=== PATIENT | female | born 1965 | race Caucasian/White ===

== ENCOUNTER 2016-12-12 18:14 | Emergency (ER) | payer MEDICAID ==
[~2016-12-12] VITALS: Wt 72.0 kg
--- NOTE | 2016-12-12 20:49 | ERD ---
ER Documentation Chief Complaint Date/Time DATE: 12/12/16 TIME: 20:47 Chief Complaint TAMPON STUCK HPI Patient is a 51-year-old female with no medical problems who presents saying that she has a tampon stuck in her vagina. She said that is been there for 3 days. She denies any vaginal bleeding currently. She said that she feels like she can touch her but she could not grab it to pull it out. She denies any fevers. She has no other complaints. She does not currently have a primary doctor. ROS All systems reviewed and are negative except as per history of present illness. Allergies Allergies: Coded Allergies: No Known Allergy (Unverified , 12/12/16) PMhx/Soc Medical and Surgical Hx: pt denies Medical Hx History of Surgery: No Anesthesia Reaction: No Hx Neurological Disorder: No Hx Respiratory Disorders: No Hx Cardiac Disorders: No Hx Psychiatric Problems: No Hx Miscellaneous Medical Probl: No Hx Alcohol Use: No Hx Substance Use: No Hx Tobacco Use: No Smoking Status: Never smoker FmHx Family History: No diabetes Physical Exam Vitals Vital Signs Date Time Temp Pulse Resp B/P Pulse Ox O2 Delivery O2 Flow Rate FiO2 12/12/16 18:21 98.1 90 18 144/77 99 Physical Exam Const: No acute distress Head: Atraumatic Eyes: Normal Conjunctiva ENT: Normal External Ears, Nose and Mouth. Neck: Full range of motion..~ No meningismus. Resp: Clear to auscultation bilaterally Cardio: Regular rate and rhythm, no murmurs Abd: Soft, non tender, non distended. Normal bowel sounds Skin: No petechiae or rashes Back: No midline or flank tenderness Ext: No cyanosis, or edema Neur: Awake and alert : I performed a speculum exam and was able to visualize the cervix, there was what appeared to be organic material such as toilet paper at approximately 5 PM in relation to the cervix, I was able to remove this, there is no tampon Procedures/MDM Patient is a 51-year-old female presents saying that she had a tampon stuck in her vagina. She did not have any tampon stuck and I was able to visualize the entire vaginal canal. I was able to find a small amount of organic material which appeared to be decomposing toilet paper below the cervix. This was removed. The patient tolerated the entire procedure. I believe outpatient management is appropriate. I doubt STD. She will need to follow-up closely with her ammonia refrigeration technician and she says she does have one Departure Diagnosis: Primary Impression: Retained foreign body Condition: Fair Patient Instructions: Vaginal Foreign Body, Removed (Adult) Referrals: Your gynceologist Additional Instructions: Specialist:Usted tiene jesus alberto condicin mdica que requiere que jason a un especialista dentro de los prximos 1-2 hobson.POR FAVOR,CON ALEAXNDRE SEGUIMIENTO DE PRIMARIA PHSICIAN refferal. SI USTED NO TIENE UN MDICO GENERAL Y / O USTED NO PUEDE PAGAR jaz a un mdico,los siguientes ross RECURSOS sido suministrado a usted. ES ALEXANDRE RESPONSABILIDAD PARA SER VISTOS POR EL ESPECIALISTA: LUCIANA SIDDIQUI MD Dec 12, 2016 20:49
== END 2016-12-12 20:48 | disposition home or self-care (01) ==
LOC: FTE 18:14
DX: T19.2XXA Foreign body in vulva and vagina, initial encounter (principal); X58.XXXA Exposure to other specified factors, initial encounter; Y92.9 Unspecified place or not applicable
CPT/HCPCS: 99284

== ENCOUNTER 2017-10-12 12:39 | Observation (INO) | END 2017-10-14 14:30 | disposition home or self-care (01) ==